=== PATIENT | female | born 1960 | race Caucasian/White ===

== ENCOUNTER → 2023-12-21 | Outpatient (CLI) | payer OTHER ==
--- NOTE | 2023-12-21 15:26 | XR ---
EXAMINATION TYPE: XR chest 2V DATE OF EXAM: 12/21/2023 COMPARISON: NONE TECHNIQUE: PA and lateral views submitted. HISTORY: MRI clearance FINDINGS: The lungs are clear and there is no pneumothorax, pleural effusion, or focal pneumonia. Heart heart enlarged and there is bilateral metallic densities overlying the bilateral lung. There is metallic d ensities in the lower posterior soft tissue which may represent residual foreign body. Osseous struct ures demonstrate hypertrophic and degenerative changes of the spine. Underlying emphysematous changes . Arthropathy of the shoulders. IMPRESSION: 1. There are metallic densities overlying both lung rodriguez and additional small metallic foreign body in the subcutaneous tissues on the lateral view of the lower thoracic spine. The patient IS NOT myrna red for MRI. Report called to Kassie the polysomnographic technologist at 3:23 PM 12/21/2023. Recommend correlation with the surgical history to determine the consistency of the metallic structures prior to any MRI. 2. COPD and cardiomegaly.
== END | disposition home or self-care (01) ==
LOC: RADMRIMAIN 14:47
PROVIDERS: ATTEND Orthopaedic Surgery
DX: S46.011D Strain of muscle(s) and tendon(s) of the rotator cuff of right shoulder, subsequent encounter (principal); J44.9 Chronic obstructive pulmonary disease, unspecified; I51.7 Cardiomegaly; M75.41 Impingement syndrome of right shoulder
CPT/HCPCS: 71046

== ENCOUNTER → 2023-12-21 | Outpatient (CLI) | payer OTHER | END | disposition home or self-care (01) | LOC: RADMRIMAIN 14:54 | PROVIDERS: ATTEND Family Medicine | DX: Q04.8 Other specified congenital malformations of brain (principal); R93.0 Abnormal findings on diagnostic imaging of skull and head, not elsewhere classified ==